=== PATIENT | male | born 1945 | race Caucasian/White ===

== ENCOUNTER → 2023-12-02 11:15 | Outpatient (REF) | payer OTHER, SELFPAY | LOC: DHSLP 11:15 | PROVIDERS: ATTENDING PHYSICIAN Student in an Organized Health Care Education/Training Program | DX: G47.33 Obstructive sleep apnea (adult) (pediatric) (principal) | CPT/HCPCS: 95800 ==

== ENCOUNTER → 2024-10-01 13:10 | Outpatient (REF) | payer OTHER, SELFPAY ==
[2024-10-01 14:29] LABS: Hematocrit 45.8 % (39.0-52.0); Hemoglobin 15.5 g/dL (13.0-18.0); Mean Corp Hgb Conc. 33.8 g/dL (33.0-37.0); Mean Corpuscular Volume 88.6 fL (80.0-94.0); Platelet Count 163 10^3/uL (130-400); Red Cell Dist. Width 14.3 % (11.5-14.5)
[2024-10-01 14:53] LABS: ALT (SGPT) 39 U/L (0-50); AST (SGOT) 38 U/L (17-59); Absolute Neutrophils -Man Diff 15.1 10^3/uL (1.4-6.5); Albumin 4.7 g/dl (3.5-5.0); Alkaline Phosphatase 95 U/L (38-126); Blood Urea Nitrogen 20 mg/dl (9-20); Calcium 9.5 mg/dl (8.4-10.2); Carbon Dioxide 24 mmol/L (22-30); Chloride 102 mmol/L (98-107); Glucose 143 mg/dl (70-99); Normal RBC Morphology Yes; Platelets Checked Yes; Potassium 4.0 mmol/L (3.5-5.1); Sodium 138 mmol/L (135-145); Total Protein 6.9 g/dl (6.3-8.2); eGFR > 60.00
[2024-10-01 14:54] LABS: Total Cells Counted 100
== END ==
LOC: REG 13:10
PROVIDERS: ATTENDING PHYSICIAN Physician Assistant; FAMILY PHYSICIAN Student in an Organized Health Care Education/Training Program
DX: M79.18 Myalgia, other site (principal); R05.3 Chronic cough
CPT/HCPCS: 36415; 71046; 80053; 82550; 84443; 85025; 85652; 86618